=== PATIENT | male | born 1945 | race Caucasian/White ===

== ENCOUNTER 2016-12-21 09:41 | Observation (INO) ==
[2016-12-21] MEDS ORDERED: 0.9 % Sodium Chloride 500 ML IVC ONE (09:48)
--- NOTE | 2016-12-21 09:57 | Emergency Department Note ---
Disposition Clinical Impression: Elevated serum creatinine Chest pain Qualifiers: Chest pain type: unspecified Qualified Code(s): R07.9 - Chest pain, unspecified Disposition: Admitted As Inpatient Condition: Fair Chest Pain HPI - General Chief Complaint: ED Chest Pain Stated Complaint: chest pain Time Seen by Provider: 12/21/16 09:44 Source: EMS Limitations: no limitations Vital Signs Reviewed: Yes Nursing Notes Reviewed: Yes - History of Present Illness HPI Narrative: 71-year-old gentleman presents for evaluation of chest pain. Past medical history includes CABG in 1994 and stent placement in 2014. Patient was walking outside he developed a dull left-sided chest pain was associated with nausea. Patient went inside and sat down and took 3 nitroglycerin which in total resolved his chest pain. This chest pain is similar in quality and nature to previous cardiac related chest pain. Patient does not have cardiology follow- up as his stent was placed in [place]. Patient takes daily aspirin as well as Plavix. Daily smoker. Hypertension. Hypercholesterol. Severity scale (1-10): 0 - Related Data Allergies Allergy/AdvReac Type Severity Reaction Status Date / Time No Known Allergies Allergy Verified 12/21/16 09:43 All systems ED: reviewed and negative except as stated. Constitutional: Denies: fever, chills ENT ED: Denies: congestion Cardiovascular: Reports: chest pain. Denies: dyspnea on exertion, orthopnea Respiratory: Denies: cough, dyspnea Gastrointestinal: Reports: nausea. Denies: abdominal pain Musculoskeletal: Denies: back pain, neck pain Integumentary: Denies: rash Endocrine: Denies: fatigue Chest Pain PMH - Past Medical History Medical history: Reports: coronary artery disease, diabetes, hypertension Psychiatric history: Reports: no psych history - Social History Smoking Status: Never smoker Alcohol use: Reports: none Drug use: Reports: none Physical Exam - General Limitations: no limitations General appearance: alert - Head Head exam: atraumatic, normocephalic - Eye Eye exam: Present: normal appearance - ENT ENT exam: normal exam - Neck Neck exam: Present: normal inspection - Chest Chest inspection: Present: normal inspection, symmetric chest wall rise. Absent : tenderness - Respiratory Respiratory exam: Present: normal lung sounds bilaterally. Absent: respiratory distress, wheezes - Cardiovascular Cardiovascular exam: Present: regular rate, normal rhythm - Abdominal Exam Abdominal exam: Present: soft, Non-Tender - Extremities Exam Extremities exam: Present: normal inspection - Back Exam Back exam: Present: normal inspection. Absent: CVA tenderness (R), CVA tenderness (L) - Neurological Exam Neurological exam: Present: alert, oriented X3 - Psychiatric Psychiatric exam: Present: normal affect, normal mood - Skin Skin exam: Present: warm, dry Course Course Narrative: Patient with significant cardiac history presenting with similar complaints. Patient will have cardiac workup and likely admission for further evaluation. Aspirin given by Squad. Currently asymptomatic after the patient gave himself 3 nitroglycerin. - Reevaluation(s) Reevaluation #1: Discussed results with the patient. We like to admit for further evaluation and management of chest pain. Troponin negative. Creatinine elevated at 1.9. Patient has a history of stage III kidney disease but has no other insight into previous laboratory evaluations. Patient remained chest pain-free at this time. Further investigation of history reveals intermittent angina with worsening symptoms over the last 2 weeks leading to the severe symptoms today that brought him in. - Consultations Consultation #1: Discussed with the hospitalist Dr. HOUSE. Patient accepted for admission. Vital Signs Temperature 98.1 F 12/21/16 09:43 Pulse Rate 73 12/21/16 09:43 Respiratory Rate 18 12/21/16 09:43 Blood Pressure 112/70 12/21/16 09:43 O2 Sat by Pulse Oximetry 100 12/21/16 09:43 Temperature 98.1 F 12/21/16 09:43 Pulse Rate 56 12/21/16 11:22 Respiratory Rate 18 12/21/16 11:22 Blood Pressure 114/63 12/21/16 11:22 O2 Sat by Pulse Oximetry 99 12/21/16 11:22 Oxygen Delivery Oxygen Delivery Room Air Chest Pain - Medical Records Medical records reviewed: Yes I reviewed the patient's medical records. - Lab Data Lab results reviewed: Yes I reviewed the patient's lab results. Result diagrams: 12/21/16 09:59 12/21/16 09:59 Lab Results 12/21/16 12/21/16 12/21/16 Range/Units 09:59 09:59 09:59 WBC 8.9 (4.3-11.1) K/mcL RBC 4.22 (4.19-5.50) M/mcL Hgb 13.6 (12.9-16.9) g/dL Hct 38.5 (37.5-50.1) % MCV 91.2 (83.0-100.0) fL MCH 32.2 (28.0-33.3) pg MCHC 35.3 (31.6-35.5) g/dL RDW 12.5 (11.5-14.5) % Plt Count 180 (140-400) K/mcL MPV 10.1 (9.4-12.4) fL Immature Gran % 0.6 (0-4) % Seg Neutrophils % 81.9 % Lymphocytes % 9.3 % Monocytes % 5.9 % Eosinophils % 2.1 % Basophils % 0.2 % Neutrophils # 7.3 (1.6-8.9) K/mcL Lymphocytes # 0.8 (0.6-4.6) K/mcL Monocytes # 0.5 (0.0-1.3) K/mcL Eosinophils # 0.2 (0.0-0.6) K/mcL Basophils # 0.0 (0.0-0.2) K/mcL Sodium 140 (136-145) mEq/L Potassium 4.5 (3.5-4.5) mEq/L Chloride 107 (98-109) mEq/L Carbon Dioxide 25 (19-29) mEq/L BUN 30 H (8-26) mg/dL Creatinine 1.94 H (0.72-1.25) mg/dL Est GFR ( Amer) 41 L (> 60) Est GFR (Non-Af Amer) 34 L (> 60) BUN/Creatinine Ratio 15 (6-26) Glucose 164 H (70-99) mg/dL Calculated Osmolality 300 (280-300) Calcium 9.4 (8.6-10.8) mg/dL Troponin I (0-0.03) ng/mL B-Natriuretic Peptide 60 (0-100) pg/mL 12/21/16 Range/Units 09:59 WBC (4.3-11.1) K/mcL RBC (4.19-5.50) M/mcL Hgb (12.9-16.9) g/dL Hct (37.5-50.1) % MCV (83.0-100.0) fL MCH (28.0-33.3) pg MCHC (31.6-35.5) g/dL RDW (11.5-14.5) % Plt Count (140-400) K/mcL MPV (9.4-12.4) fL Immature Gran % (0-4) % Seg Neutrophils % % Lymphocytes % % Monocytes % % Eosinophils % % Basophils % % Neutrophils # (1.6-8.9) K/mcL Lymphocytes # (0.6-4.6) K/mcL Monocytes # (0.0-1.3) K/mcL Eosinophils # (0.0-0.6) K/mcL Basophils # (0.0-0.2) K/mcL Sodium (136-145) mEq/L Potassium (3.5-4.5) mEq/L Chloride (98-109) mEq/L Carbon Dioxide (19-29) mEq/L BUN (8-26) mg/dL Creatinine (0.72-1.25) mg/dL Est GFR ( Amer) (> 60) Est GFR (Non-Af Amer) (> 60) BUN/Creatinine Ratio (6-26) Glucose (70-99) mg/dL Calculated Osmolality (280-300) Calcium (8.6-10.8) mg/dL Troponin I 0.01 (0-0.03) ng/mL B-Natriuretic Peptide (0-100) pg/mL - Radiology Data Radiology results reviewed: Yes I reviewed the patient's radiology results. - EKG Data EKG attestation: Yes I reviewed and interpreted this EKG. EKG results narrative: EKG shows sinus rhythm with ventricular rate of 68 bpm. GA interval 141. QRS 93. QTC 39. There is no significant ST elevations or depressions. No significant T-wave changes. No previous EKG for comparison. Heart Score - Score History: Highly Suspicious EKG: Normal Age: Greater than 65 Risk Factors: Equal/Greater than 3 risk factor or history of atherosclerotic disease Troponin: Less than normal limit HEART Score Total: 6 Attestation Statement - Attestation Attestation: I examined this patient and my medical decision-making was reviewed with the MOTOR ASSEMBLY SUPERVISOR/PA/Advanced Practice Nurse/Resident Physician. I agree with the documented findings, disposition and treatment plan as described except to the extent set forth below.
[2016-12-21 10:13] LABS: Basophils % 0.2 %; Eosinophils # 0.2 K/mcL (0.0-0.6); Eosinophils % 2.1 %; Hematocrit 38.5 % (37.5-50.1); Hemoglobin 13.6 g/dL (12.9-16.9); Immature Granulocytes % 0.6 % (0-4); Lymphocytes # 0.8 K/mcL (0.6-4.6); Lymphocytes % 9.3 %; Mean Corpuscular HGB Conc 35.3 g/dL (31.6-35.5); Mean Corpuscular Hemoglobin 32.2 pg (28.0-33.3); Mean Corpuscular Volume 91.2 fL (83.0-100.0); Mean Platelet Volume 10.1 fL (9.4-12.4); Monocytes # 0.5 K/mcL (0.0-1.3); Monocytes % 5.9 %; Neutrophils # 7.3 K/mcL (1.6-8.9); Platelet Count 180 K/mcL (140-400); Red Blood Count 4.22 M/mcL (4.19-5.50); Red Cell Distribution Width 12.5 % (11.5-14.5); Segmented Neutrophils % 81.9 %
[2016-12-21 10:26] LABS: Calcium 9.4 mg/dL (8.6-10.8); Potassium 4.5 mEq/L (3.5-4.5)
--- NOTE | 2016-12-21 13:20 | Internal Med History&Physical ---
Date of Encounter: 12/21/16 Time of Encounter: 13:18 Assessment and Plan (1) Chest pain Current visit: Yes Status: Acute he is chest pain free at this time. first trop is negative, no ischemic changes in EKG. s/p 3 s/l nitroglycerin before arrival will trend tropx3 it was explained to the patient he might need a stress test given high risk even if the troponin and EKG is negative. he says that he does not want stress testing to be done here and would like to have it done at [place] if he really needs one as he had his stentings done over there. HE wants to stay here just overnight and dc tomm if he has no chest pain. Qualifiers: Chest pain type: unspecified Qualified Code(s): R07.9 - Chest pain, unspecified (2) CKD (chronic kidney disease) Current visit: Yes Status: Acute h/o CKD, unknown baseline. will continue to monitor avoid nephrotoxic agents. Qualifiers: Chronic kidney disease stage: stage 3 (moderate) Qualified Code(s): N18.3 - Chronic kidney disease, stage 3 (moderate) (3) CAD (coronary artery disease) Current visit: Yes Status: Acute conitnue asa , BB and plavix with statin. Qualifiers: Coronary Disease-Associated Artery/Lesion type: [place] artery [place] vs. transplanted heart: [place] heart Associated angina: with stable angina Qualified Code(s): I25.118 - Atherosclerotic heart disease of [place] coronary artery with other forms of angina pectoris Internal Medicine - H&P: HPI Chief complaint: chest pain Admitted From: Home Plans for Post Hospital Care: Home History of present illness: Mr. Sandoval is a 71 year old male with past medical history of hypertension, diabetes, hyperlipidemia presents for evaluation of chest pain. Past medical history includes CAD and stent placement, he says he has total of 11 stents so far, last one was ~6-8months ago in [place]. Patient was walking outside he developed a dull left-sided chest pain was associated with nausea. Patient went inside and sat down and took 3 nitroglycerin which in total resolved his chest pain. This chest pain is similar in quality and nature to previous cardiac related chest pain. Patient does not have cardiology follow-up as his stent was placed in [place], he says its a long distance and he had not had any problem after the last stent so he did not go for his appt. Patient takes daily aspirin as well as Plavix. Daily smoker. Past Med Surg Social Fam HX - Past Medical History Medical history: coronary artery disease, diabetes, hypertension Psychiatric history: no psych history - Social History Smoking Status: Never smoker Smokeless Tobacco Status: No Alcohol use: none Drug use: none Internal Medicine - H&P: Meds Amlodipine Besylate 10 mg PO DAILY 12/21/16 [History] Aspirin [Lo-Dose Aspirin EC] 81 mg PO DAILY 12/21/16 [History] Atorvastatin [Lipitor] 40 mg PO HS 12/21/16 [History] Clopidogrel [Plavix] 75 mg PO DAILY 12/21/16 [History] GlipiZIDE [Glucotrol] 5 mg PO BIDWM 12/21/16 [History] Lisinopril [Zestril] 2.5 mg PO DAILY 12/21/16 [History] Metoprolol [Lopressor] 12.5 mg PO BID 12/21/16 [History] Nitroglycerin [Nitrolingual] 1 spray TL AD PRN 12/21/16 [History] Tamsulosin [Flomax] 0.4 mg PO DAILY 12/21/16 [History] Allergies No Known Allergies Allergy (Verified 12/21/16 09:43) All Systems PM: A 10-system review of systems was performed and is negative for pertinent findings except as documented above in the HPI. - Constitutional Constitutional: as per HPI - EENT Eyes: as per HPI Ears: as per HPI Nose, mouth and throat: as per HPI - Breasts Breasts: as per HPI - Cardiovascular Cardiovascular ROS IM: chest pain - Respiratory Respiratory: as per HPI - Gastrointestinal Gastrointestinal: as per HPI - Constitutional Vitals: Temp Pulse Resp BP Pulse Ox 98.1 F 56 18 115/55 99 12/21/16 09:43 12/21/16 11:22 12/21/16 11:44 12/21/16 11:44 12/21/16 11:22 General appearance: Present: A&O X 3, no acute distress Exam: neck- supple chest- b/l clear, no added sounds CVs-s1 and s2, no m/r/g abd-soft, non tender, bs are present ext- no edema neuro- no focal defecits Internal Med - H&P Results - Labs CBC & Chem 7: 05/08/17 09:59 12/21/16 09:59
[2016-12-21] MEDS ORDERED: *HR* Morphine 2 MG/ML SYRINGE IVP PRN (13:26)
[2016-12-21] MEDS ORDERED: *HR* OxyCODONE Immed Rel 5 MG TABLET PO PRN (13:26)
[2016-12-21] MEDS ORDERED: Naloxone 0.4 MG/ML INJ IVP PRN (13:26)
[2016-12-21] MEDS ORDERED: *HR* Dextrose 50 % in Water (Syg) 50 ML SYRINGE IVP PRN (13:29)
[2016-12-21] MEDS ORDERED: D5% in Water 1,000 ML IVC PRN (13:29)
[2016-12-21] MEDS ORDERED: Dextrose Gel 15 GM PO PRN ×2 (13:29)
[2016-12-21] MEDS: Insulin LISPRO 300 UNITS/3 ML VIAL SQ SCH (16:30)
--- NOTE | 2016-12-21 17:35 | Electrocardiograph Report ---
[address] [address] Test Date: 2016-12-21 Pat Name: Jesus Sandoval Department: 105 Room: 3A24 Gender: M Ice Skating Instructor: : 1945 Requested By: Brannon Brewer Order Number: [id number] Reading MD: Drake Bach Measurements Intervals [place] Rate: 68 P: 61 TN: 141 QRS: 61 QRSD: 93 T: 67 QT: 371 QTc: 389 Interpretive Statements SINUS RHYTHM Electronically Signed On 12-21-2016 17:34:01 EDT by Drake Bach
[2016-12-21] MEDS ORDERED: Nitroglycerin 0.4 MG TAB.SUBL SL PRN (19:34)
[2016-12-21] MEDS ORDERED: Insulin LISPRO 300 UNITS/3 ML VIAL SQ SCH (21:00)
[2016-12-22 01:27] LABS: Basophils % 0.4 %; Eosinophils # 0.3 K/mcL (0.0-0.6); Eosinophils % 3.9 %; Hematocrit 35.2 % (37.5-50.1); Hemoglobin 12.1 g/dL (12.9-16.9); Immature Granulocytes % 0.3 % (0-4); Lymphocytes # 1.9 K/mcL (0.6-4.6); Lymphocytes % 27.6 %; Mean Corpuscular HGB Conc 34.4 g/dL (31.6-35.5); Mean Corpuscular Hemoglobin 31.3 pg (28.0-33.3); Mean Corpuscular Volume 91.2 fL (83.0-100.0); Mean Platelet Volume 9.8 fL (9.4-12.4); Monocytes # 0.7 K/mcL (0.0-1.3); Monocytes % 10.1 %; Neutrophils # 3.9 K/mcL (1.6-8.9); Platelet Count 171 K/mcL (140-400); Red Blood Count 3.86 M/mcL (4.19-5.50); Red Cell Distribution Width 12.5 % (11.5-14.5); Segmented Neutrophils % 57.7 %
[2016-12-22 01:46] LABS: Calcium 8.7 mg/dL (8.6-10.8); Chol/HDL Ratio 3.1 (0-4.9); Magnesium 2.1 mg/dL (1.6-2.6); Potassium 3.7 mEq/L (3.5-4.5)
[2016-12-22] MEDS: Insulin LISPRO 300 UNITS/3 ML VIAL SQ SCH ×2 (07:57→12:08)
[2016-12-22] MEDS ORDERED: Aspirin Enteric Coated 81 MG Tablet PO SCH (09:00)
[2016-12-22] MEDS ORDERED: amLODIPine 5 MG TABLET PO SCH (09:00)
--- NOTE | 2016-12-22 10:57 | Discharge Summary ---
Date of Encounter: 12/22/16 Time of Encounter: 10:55 - Discharge Diagnosis (1) CAD (coronary artery disease) Priority: Primary Status: Acute Comments: cp with stable angina/progressive angina history of multiple stents Qualifiers: Coronary Disease-Associated Artery/Lesion type: [place] artery [place] vs. transplanted heart: [place] heart Associated angina: with stable angina Qualified Code(s): I25.118 - Atherosclerotic heart disease of [place] coronary artery with other forms of angina pectoris (2) HTN (hypertension) Priority: Secondary Status: Acute Qualifiers: Hypertension type: essential hypertension Qualified Code(s): I10 - Essential (primary) hypertension (3) Diabetes Priority: Secondary Status: Acute Qualifiers: Diabetes mellitus type: type 2 Diabetes mellitus complication status: without complication Diabetes mellitus retirement insulin use: without exterminator helper use Qualified Code(s): E11.9 - Type 2 diabetes mellitus without complications (4) HLD (hyperlipidemia) Priority: Secondary Status: Acute Qualifiers: Hyperlipidemia type: pure hypercholesterolemia Qualified Code(s): E78.00 - Pure hypercholesterolemia, unspecified; E78.0 - Pure hypercholesterolemia (5) CKD (chronic kidney disease) Priority: Secondary Status: Acute Qualifiers: Chronic kidney disease stage: stage 3 (moderate) Qualified Code(s): N18.3 - Chronic kidney disease, stage 3 (moderate) - Discharge Medications Home Medications: Amlodipine Besylate 10 mg PO DAILY 12/21/16 [History] Aspirin [Lo-Dose Aspirin EC] 81 mg PO DAILY 12/21/16 [History] Atorvastatin [Lipitor] 40 mg PO HS 12/21/16 [History] Clopidogrel [Plavix] 75 mg PO DAILY 12/21/16 [History] GlipiZIDE [Glucotrol] 5 mg PO BIDWM 12/21/16 [History] Lisinopril [Zestril] 2.5 mg PO DAILY 12/21/16 [History] Metoprolol [Lopressor] 12.5 mg PO BID 12/21/16 [History] Nitroglycerin [Nitrolingual] 1 spray TL AD PRN 12/21/16 [History] Tamsulosin [Flomax] 0.4 mg PO DAILY 12/21/16 [History] Allergies/Adverse Reactions: Allergies No Known Allergies Allergy (Verified 12/21/16 09:43) Date of admission: 12/21/16 11:41 Primary care physician: Milton Murray, - Patient Status Disposition: Transfer Critical Access Hosp Condition: Fair Overall status at discharge: patient is progressing back to baseline - Discharge Instructions Follow Up With: Milton Murray, [Primary Care Provider] - 01/14/17 7:45 am Additional Instructions: transfer to [facility] - Diet and Activity Diet: low fat, low cholesterol Hospital course: Mr. Sandoval is a 71 year old male with past medical history of hypertension, diabetes not insulin dep, hyperlipidemia presented for evaluation of chest pain. Past medical history includes CAD and stent placement, he says he has total of 11 stents so far, last one was ~6-8months ago in [place]. Patient was walking outside when he developed a dull left-sided chest pain was associated with nausea. Patient went inside and sat down and took 3 nitroglycerin which in total resolved his chest pain. This chest pain is similar in quality and nature to previous cardiac related chest pain. . Patient takes daily aspirin as well as Plavix. Daily smoker. EKG without ischemic changes, troponins were normal. Says he can not walk more than 10 yards without having chest pressure/discomfort , requested to be transferred to the [facility] as he sees Dr De La Rosa there ( could not spell his last name) . Contacted Dr Fang from the [facility] who accepted the patient under his care. Time spent discussing smoking cessation with patient: 3 to 10 minutes - Time Spent with Patient Total time spent providing and/or coordinating discharge services: Greater than 30 minutes (40 min) - Constitutional Vitals: Temp Pulse Resp BP Pulse Ox 97.9 F 75 18 144/69 97 12/22/16 07:50 12/22/16 07:50 12/22/16 07:50 12/22/16 07:50 12/22/16 07:50 General appearance: Present: A&O X 3, no acute distress - Head Head exam: Present: atraumatic, normocephalic - Eye Eye exam: Present: PERRL, conjuntiva pink, sclera anicteric Pupils: Present: PERRL - Neck Neck exam general surgery: Present: supple, trachea midline. Absent: lymphadenopathy - Respiratory Respiratory exam: Present: CTAB. Absent: accessory muscle use, rales, rhonchi, wheezes - Cardiovascular Cardiovascular exam: Present: RRR, +S1, +S2. Absent: diastolic murmur, gallop, rubs, systolic murmur - GI/Abdominal GI/Abdominal exam: Present: normal bowel sounds, soft, no peritoneal signs. Absent: distended, tenderness - Extremities Exam Extremities exam: Present: warm, radial pulses palpable and symetrical. Absent : calf tenderness, cyanotic, pedal edema - Neurological Exam Neurological exam: Present: CN II-XII intact, oriented X3, no focal deficits. Absent: pronater drift, facial droop, speech deficit - Skin Skin exam: Present: dry, intact
[2016-12-22 17:33] VITALS: BP 120/55
== END 2016-12-22 17:34 | disposition critical access hospital (66) ==
LOC: 3ANU 09:41 → EMEROO 09:41 → SUATTDRO 11:41 → 3ANU 11:56
PROVIDERS: ADMIT Internal Medicine Endocrinology, Diabetes & Metabolism; ATTEND Internal Medicine

== ENCOUNTER 2017-05-24 08:33 | Observation (INO) ==
[2017-05-24] MEDS ORDERED: 0.9 % Sodium Chloride 1,000 ML IVC ONE (08:53)
[2017-05-24 09:18] LABS: Hematocrit 39.6 % (37.5-50.1); Hemoglobin 13.8 g/dL (12.9-16.9); Immature Platelets 2.8 % (1.1-6.1); Mean Corpuscular HGB Conc 34.8 g/dL (31.6-35.5); Mean Corpuscular Hemoglobin 30.3 pg (28.0-33.3); Mean Corpuscular Volume 86.8 fL (83.0-100.0); Mean Platelet Volume 9.4 fL (9.4-12.4); Red Blood Count 4.56 M/mcL (4.19-5.50); Red Cell Distribution Width 12.5 % (11.5-14.5)
[2017-05-24 09:23] LABS: INR 1.1; Prothrombin Time 11.9 Seconds (9.4-12.1)
[2017-05-24 09:25] LABS: Activated Partial Thrombo Time 26.3 Seconds (26.0-36.0)
[2017-05-24 09:33] LABS: Alanine Aminotransferase 19 Units/L (0-55); Albumin 3.4 g/dL (3.5-5.0); Albumin/Globulin Ratio 1.1 (1.1-2.2); Alkaline Phosphatase 79 Units/L (38-126); Aspartate Amino Transferase 17 Units/L (5-34); Bilirubin,Direct 0.3 mg/dL (0.0-0.5); Bilirubin,Indirect 0.5 mg/dL (0.0-1.2); Bilirubin,Total 0.8 mg/dL (0.2-1.2); Creatine Kinase 65 Units/L (30-200); Globulin 3.2 g/dL (2.4-3.5); Total Protein 6.6 g/dL (6.0-8.3)
[2017-05-24 10:03] LABS: Ethanol < 10 mg/dL (0-10)
[2017-05-24 10:06] LABS: Bilirubin,Urine Negative (Negative); Blood,Urine Negative (Negative); Clarity,Urine Clear (Clear); Color,Urine Yellow (Yellow); Glucose,Urine (UA) 250 mg/dL (Normal); Ketones,Urine Negative (Negative); Leukocyte Esterase,Urine Negative (Negative); Nitrite,Urine Negative (Negative); PH,Urine 6.5 pH Units (5.0-8.0); Protein,Urine 100 mg/dL (Neg-Trace); Specific Gravity,Urine 1.017 (1.010-1.025); Urobilinogen,Urine Normal (Normal)
[2017-05-24 10:08] LABS: Bacteria,Urine None Seen per hpf (None-Few); Hyaline Casts,Urine None Seen per lpf (None-Few); RBC,Urine 0-3 per hpf (0-3); Squamous Epithelial Cell,Urine Few per lpf (None-Few); WBC,Urine 0-3 per hpf (0-3)
[2017-05-24 10:40] LABS: Amphetamine Screen,Urine Negative ng/mL (Cutoff=1000); Barbiturate Screen,Urine Negative ng/mL (Cutoff=200); Benzodiazepines Screen,Urine Negative ng/mL (Cutoff=200); Cannabinoid Screen,Urine Negative ng/mL (Cutoff = 50); Cocaine Screen,Urine Negative ng/mL (Cutoff= 300); Opiate Screen,Urine Negative ng/mL (Cutoff=300); Phencyclidine Screen,Urine Negative ng/mL (Cutoff=25)
[2017-05-24] MEDS ORDERED: Naloxone 0.4 MG/ML INJ IVP PRN (11:54)
[2017-05-24] MEDS ORDERED: Acetaminophen 325 MG TABLET PO PRN (11:54)
--- NOTE | 2017-05-24 11:59 | Emergency Department Note ---
Disposition Clinical Impression: Dysphasia TIA (transient ischemic attack) Qualifiers: Transient cerebral ischemia type: unspecified Qualified Code(s): G45.9 - Transient cerebral ischemic attack, unspecified Disposition: Admitted As Inpatient Condition: Good Referrals: Milton Murray DO [Primary Care Provider] - Time of Disposition: 12:31 General Adult HPI - General Chief complaint: ED Altered Mental Status Stated complaint: confusion Time Seen by Provider: 05/24/17 08:53 Source: patient Mode of arrival: EMS Limitations: no limitations Nursing Notes Reviewed: Yes Vital Signs Reviewed: Yes - History of Present Illness HPI Narrative: Patient presents emergency room the care of the family for evaluation of confusion and difficulty with speech this morning. Symptom onset late last night and has been stable since last night at that time. He has been managed up at outside facility for cardiac related issues but presented to our emergency room for evaluation of his difficulty with speech. Denies any chest pain shortness of breath headache vision changes nausea vomiting or diarrhea. Denies any fevers or chills recent trauma or injuries. Denies any new medications or changes in his medications at this time Onset (ago): hour(s) Radiation: non-radiation Pain Severity: mild Pain Scale: 1 Consistency: constant Improves with: nothing Worsens with: nothing Associated symptoms: Reports: denies other symptoms Treatments Prior to Arrival: none - Related Data Home Medications Medication Instructions Recorded Confirmed Amlodipine Besylate 10 mg PO DAILY 12/21/16 05/24/17 Aspirin [Lo-Dose Aspirin EC] 81 mg PO DAILY 12/21/16 05/24/17 Atorvastatin [Lipitor] 40 mg PO HS 12/21/16 05/24/17 Clopidogrel [Plavix] 75 mg PO DAILY 12/21/16 05/24/17 Metoprolol [Lopressor] 25 mg PO DAILY 12/21/16 05/24/17 Tamsulosin [Flomax] 0.4 mg PO DAILY 12/21/16 05/24/17 glipiZIDE [Glucotrol] 5 mg PO BIDWM 12/21/16 05/24/17 Allergies Allergy/AdvReac Type Severity Reaction Status Date / Time No Known Allergies Allergy Verified 12/21/16 09:43 All systems ED: reviewed and negative except as stated. Review of Systems: As Per HPI Constitutional: Denies: fever, chills Eyes: Denies: eye pain, eye discharge Cardiovascular: Denies: chest pain, palpitations, dyspnea on exertion Respiratory: Denies: cough, dyspnea, wheezes Gastrointestinal: Denies: abdominal pain, nausea, vomiting Genitourinary: Denies: urgency, dysuria, frequency Musculoskeletal: Denies: back pain, neck pain Neurological: Reports: confusion. Denies: headache, weakness, numbness Psychiatric: Denies: anxiety Past Medical History - Past Medical History Attestation: Yes The following information was validated with the patient. Source: patient Medical history: Reports: coronary artery disease, diabetes, hypertension Surgical history: Reports: coronary bypass (CABG) Psychiatric history: Reports: no psych history - Social History Smoking Status: Never smoker Smokeless Tobacco Status: No Alcohol use: Reports: none Drug use: Reports: none Physical Exam - General Limitations: no limitations General appearance: alert, in no apparent distress - Head Head exam: atraumatic, normocephalic, normal inspection - ENT ENT exam: normal exam, normal oropharynx, mucous membranes moist - Neck Neck exam: Present: normal inspection, full ROM, trachea midline - Chest Chest inspection: Present: normal inspection, symmetric chest wall rise - Respiratory Respiratory exam: Present: normal lung sounds bilaterally - Cardiovascular Cardiovascular exam: Present: regular rate, normal rhythm, normal heart sounds - Abdominal Exam Abdominal exam: Present: soft, Non-Tender. Absent: tenderness, distention, guarding, rebound, rigidity - Extremities Exam Extremities exam: Present: normal inspection, full ROM, normal capillary refill. Absent: tenderness - Back Exam Back exam: Present: normal inspection, full ROM. Absent: tenderness - Neurological Exam Neurological exam: Present: alert, oriented X3, normal gait - Skin Skin exam: Present: warm, dry, intact, normal color Course Course Narrative: Patient seen and examined the time of arrival. See history of present illness. 72-year-old male presents with almost 18 hours worth of dysphasia secondary to difficulty with getting words out. He also has slight slurring of speech. No facial asymmetry noted no signs of ataxia or asymmetric muscle use based on symptom history and presentation according to the family. Patient is alert and oriented he speaks in full sentences but does have what appears to be some mild dysphasia and dysarthria. There is no facial asymmetry. His neurologic evaluation is otherwise unremarkable. His appropriate cerebellar function shows no acute signs of ataxia or dizziness. Head is atraumatic pupils are equal and reactive to light and ocular muscles are intact. Lungs are clear heart is regular abdomen is soft nontender nondistended. Patient has no other complaints or issues on presentation except for the neurologic symptoms including difficulty with getting out words. Patient received imaging of the head labs including CBC chemistry urinalysis and any other A abnormality evaluation. EKG completed at this time. Disposition pending workup and treatment course. Patient advised that we may recommend admission to this facility in a comfortable despite this time. No other concerns or issues noted from the family this point - Reevaluation(s) Reevaluation #1: CT imaging of the patient's head is otherwise unremarkable at this time. EKG shows sinus rhythm and no acute abnormalities. This review from an EKG in December of this year. No signs of ST segment elevation or myocardial infarction. Labs otherwise unremarkable at this time. I discussed the findings with the family as well as the patient. Recommended admission for TIA evaluation. Patient's symptoms are actually better this time with no acute findings at this point he is able to speak in full sentences. Patient will be discussed with the hospitalist for admission Time: 10:30 Reevaluation #2: Patient discussed with hospitalist dr. mulligan. The presentation symptoms and medical history. The patient for TIA evaluation. No other recommendations from them at this time. Patient is otherwise stable in emergency room and will be observed until the admission process is completed Time: 12:29 Vital Signs Temperature 97.8 F 05/24/17 08:35 Pulse Rate 63 05/24/17 08:35 Respiratory Rate 16 05/24/17 08:35 Blood Pressure 140/64 05/24/17 08:35 O2 Sat by Pulse Oximetry 97 05/24/17 08:35 Temperature 97.8 F 05/24/17 08:35 Pulse Rate 60 05/24/17 11:27 Respiratory Rate 16 05/24/17 11:27 Blood Pressure 135/67 05/24/17 11:27 O2 Sat by Pulse Oximetry 99 05/24/17 11:27 Oxygen Delivery Oxygen Delivery Room Air Medical Decision Making - MDM Narrative Medical decision making narrative: TIA, dysphagia, dysarthria - Medical Records Medical records reviewed: Yes I reviewed the patient's medical records. - Lab Data Lab results reviewed: Yes I reviewed the patient's lab results. Result diagrams: 05/24/17 09:07 05/24/17 09:07 Lab Results 05/24/17 05/24/17 05/24/17 Range/Units 08:55 09:07 09:07 WBC 6.6 (4.3-11.1) K/mcL RBC 4.56 (4.19-5.50) M/mcL Hgb 13.8 (12.9-16.9) g/dL Hct 39.6 (37.5-50.1) % MCV 86.8 (83.0-100.0) fL MCH 30.3 (28.0-33.3) pg MCHC 34.8 (31.6-35.5) g/dL RDW 12.5 (11.5-14.5) % Plt Count 185 (140-400) K/mcL MPV 9.4 (9.4-12.4) fL Immature Plt Fraction 2.8 (1.1-6.1) % PT 11.9 (9.4-12.1) Seconds INR 1.1 APTT 26.3 (26.0-36.0) Seconds POC Glucose 207 H (58-89) Total Bilirubin (0.2-1.2) mg/dL Direct Bilirubin (0.0-0.5) mg/dL Indirect Bilirubin (0.0-1.2) mg/dL AST (5-34) Units/L ALT (0-55) Units/L Alkaline Phosphatase (38-126) Units/L Ammonia (18-72) mcmol/L Creatine Kinase (30-200) Units/L Troponin I (0-0.03) ng/mL Serum Total Protein (6.0-8.3) g/dL Albumin (3.5-5.0) g/dL Globulin (2.4-3.5) g/dL Albumin/Globulin Ratio (1.1-2.2) Urine Color (Yellow) Urine Clarity (Clear) Urine pH (5.0-8.0) pH Units Ur Specific [place] (1.010-1.025) Urine Protein (Neg-Trace) mg/dL Urine Glucose (UA) (Normal) mg/dL Urine Ketones (Negative) mg/dL Urine Blood (Negative) Urine Nitrite (Negative) Urine Bilirubin (Negative) Urine Urobilinogen (Normal) mg/dL Ur Leukocyte Esterase (Negative) Urine Microscopic RBC (0-3) per hpf Urine Microscopic WBC (0-3) per hpf Ur Squamous Epith Cells (None-Few) per lpf Urine Bacteria (None-Few) per hpf Hyaline Casts (None-Few) per lpf Ur Culture Indicated? (NO) Urine Opiates Screen (Cgiuot=191) ng/mL Ur Barbiturates Screen (Jjcnmx=807) ng/mL Ur Phencyclidine Scrn (Cutoff=25) ng/mL Ur Amphetamines Screen (Qkywqr=3327) ng/mL U Benzodiazepines Scrn (Nuphfd=166) ng/mL Urine Cocaine Screen (Cutoff= 300) ng/mL U Marijuana (THC) Screen (Cutoff = 50) ng/mL Ethyl Alcohol (0-10) mg/dL Blood Type Antibody Screen 05/24/17 05/24/17 05/24/17 Range/Units 09:07 09:07 09:07 WBC (4.3-11.1) K/mcL RBC (4.19-5.50) M/mcL Hgb (12.9-16.9) g/dL Hct (37.5-50.1) % MCV (83.0-100.0) fL MCH (28.0-33.3) pg MCHC (31.6-35.5) g/dL RDW (11.5-14.5) % Plt Count (140-400) K/mcL MPV (9.4-12.4) fL Immature Plt Fraction (1.1-6.1) % PT (9.4-12.1) Seconds INR APTT (26.0-36.0) Seconds POC Glucose (58-89) Total Bilirubin 0.8 (0.2-1.2) mg/dL Direct Bilirubin 0.3 (0.0-0.5) mg/dL Indirect Bilirubin 0.5 (0.0-1.2) mg/dL AST 17 (5-34) Units/L ALT 19 (0-55) Units/L Alkaline Phosphatase 79 (38-126) Units/L Ammonia 20 (18-72) mcmol/L Creatine Kinase 65 (30-200) Units/L Troponin I (0-0.03) ng/mL Serum Total Protein 6.6 (6.0-8.3) g/dL Albumin 3.4 L (3.5-5.0) g/dL Globulin 3.2 (2.4-3.5) g/dL Albumin/Globulin Ratio 1.1 (1.1-2.2) Urine Color (Yellow) Urine Clarity (Clear) Urine pH (5.0-8.0) pH Units Ur Specific [place] (1.010-1.025) Urine Protein (Neg-Trace) mg/dL Urine Glucose (UA) (Normal) mg/dL Urine Ketones (Negative) mg/dL Urine Blood (Negative) Urine Nitrite (Negative) Urine Bilirubin (Negative) Urine Urobilinogen (Normal) mg/dL Ur Leukocyte Esterase (Negative) Urine Microscopic RBC (0-3) per hpf Urine Microscopic WBC (0-3) per hpf Ur Squamous Epith Cells (None-Few) per lpf Urine Bacteria (None-Few) per hpf Hyaline Casts (None-Few) per lpf Ur Culture Indicated? (NO) Urine Opiates Screen (Caavkp=639) ng/mL Ur Barbiturates Screen (Jnrmdm=657) ng/mL Ur Phencyclidine Scrn (Cutoff=25) ng/mL Ur Amphetamines Screen (Giuxwm=1329) ng/mL U Benzodiazepines Scrn (Axmboi=429) ng/mL Urine Cocaine Screen (Cutoff= 300) ng/mL U Marijuana (THC) Screen (Cutoff = 50) ng/mL Ethyl Alcohol < 10 (0-10) mg/dL Blood Type O POSITIVE Antibody Screen NEGATIVE 05/24/17 05/24/17 05/24/17 Range/Units 09:07 09:59 09:59 WBC (4.3-11.1) K/mcL RBC (4.19-5.50) M/mcL Hgb (12.9-16.9) g/dL Hct (37.5-50.1) % MCV (83.0-100.0) fL MCH (28.0-33.3) pg MCHC (31.6-35.5) g/dL RDW (11.5-14.5) % Plt Count (140-400) K/mcL MPV (9.4-12.4) fL Immature Plt Fraction (1.1-6.1) % PT (9.4-12.1) Seconds INR APTT (26.0-36.0) Seconds POC Glucose (58-89) Total Bilirubin (0.2-1.2) mg/dL Direct Bilirubin (0.0-0.5) mg/dL Indirect Bilirubin (0.0-1.2) mg/dL AST (5-34) Units/L ALT (0-55) Units/L Alkaline Phosphatase (38-126) Units/L Ammonia (18-72) mcmol/L Creatine Kinase (30-200) Units/L Troponin I 0.01 (0-0.03) ng/mL Serum Total Protein (6.0-8.3) g/dL Albumin (3.5-5.0) g/dL Globulin (2.4-3.5) g/dL Albumin/Globulin Ratio (1.1-2.2) Urine Color Yellow (Yellow) Urine Clarity Clear (Clear) Urine pH 6.5 (5.0-8.0) pH Units Ur Specific [place] 1.017 (1.010-1.025) Urine Protein 100 H (Neg-Trace) mg/dL Urine Glucose (UA) 250 H (Normal) mg/dL Urine Ketones Negative (Negative) mg/dL Urine Blood Negative (Negative) Urine Nitrite Negative (Negative) Urine Bilirubin Negative (Negative) Urine Urobilinogen Normal (Normal) mg/dL Ur Leukocyte Esterase Negative (Negative) Urine Microscopic RBC 0-3 (0-3) per hpf Urine Microscopic WBC 0-3 (0-3) per hpf Ur Squamous Epith Cells Few (None-Few) per lpf Urine Bacteria None Seen (None-Few) per hpf Hyaline Casts None Seen (None-Few) per lpf Ur Culture Indicated? NO (NO) Urine Opiates Screen Negative (Valcuz=631) ng/mL Ur Barbiturates Screen Negative (Lhyxxb=914) ng/mL Ur Phencyclidine Scrn Negative (Cutoff=25) ng/mL Ur Amphetamines Screen Negative (Mevejv=3126) ng/mL U Benzodiazepines Scrn Negative (Ebtngq=660) ng/mL Urine Cocaine Screen Negative (Cutoff= 300) ng/mL U Marijuana (THC) Screen Negative (Cutoff = 50) ng/mL Ethyl Alcohol (0-10) mg/dL Blood Type Antibody Screen - Radiology Data Radiology results reviewed: Yes I reviewed the patient's radiology results. CT imaging of the head is otherwise unremarkable chest x-ray stable - EKG Data EKG #1 EKG attestation: Yes I reviewed and interpreted this EKG. EKG shows normal: sinus rhythm, axis, intervals, QRS complexes, ST-T waves Rate: normal [place]/QRS: normal When compared to previous EKG there are: no significant changes Interpretation: no acute changes, unchanged when compared to prior tracing (date ) (12/30) NIH Stroke Scale - Level of Consciousness LOC: Alert - LOC Questions LOC Questions: Answers both correctly - LOC Commands LOC Commands: Performs both correctly - Best Gaze Best Gaze: Normal - Visual Visual: No visual loss - Facial Palsy Facial Palsy: Normal - Motor Arms Motor Arm-Left: No drift for 10 seconds Motor Arm-Right: No drift for 10 seconds - Motor Legs Motor Leg-Left: No drift for 5 seconds Motor Leg-Right: No drift for 5 seconds - Limb Ataxia Limb Ataxia: Absent of affected limb too weak to perform exam - Sensory Sensory: Normal - Best Language Best Language: Mild to moderate aphasia. Examiner can identify picture from response - Dysarthria Dysarthria: Mild, slurs some words - Extinction and Inattention Extinction and Inattention: Normal - NIHSS Total Score NIHSS Total Score: 2
[2017-05-24] MEDS ORDERED: *HR* Dextrose 50 % in Water (Syg) 50 ML SYRINGE IVP PRN (12:01)
[2017-05-24] MEDS ORDERED: Dextrose Gel 15 GM PO PRN ×2 (12:01)
[2017-05-24] MEDS ORDERED: D5% in Water 1,000 ML IVC PRN (12:01)
--- NOTE | 2017-05-24 12:22 | Internal Med History&Physical ---
<Radha Osman M - Last Filed: 05/24/17 12:57> Date of Encounter: 05/24/17 Time of Encounter: 12:17 Assessment and Plan (1) TIA (transient ischemic attack) Current visit: Yes Status: Acute Patient has had multiple episode of slurred speech over the last few days. This morning it was accompanied by confusion and lasted for at least 1 hour. Symptoms have now resolved. CT head was negative for acute intracranial abnormality. EKG showed NSR. Patient already on aspiring, plavix and statin. Continue home doses. continuous diagnostic cardiac sonographer echocardiogram MRI head/brain w/o contrast carotid dopplers Qualifiers: Transient cerebral ischemia type: unspecified Qualified Code(s): G45.9 - Transient cerebral ischemic attack, unspecified (2) CAD (coronary artery disease) Current visit: Yes Status: Acute Patient with CAD s/p CABG and multiple stent placements. He follows with cardiology at [facility]. He is not experiencing any chest pain and troponin was negative at 0.01 Continue home doses of aspirin, statin, plavix. Qualifiers: Coronary Disease-Associated Artery/Lesion type: [place]ik artery [place] vs. transplanted heart: knik heart Associated angina: with stable angina Qualified Code(s): I25.118 - Atherosclerotic heart disease of knik coronary artery with other forms of angina pectoris (3) Diabetes Current visit: Yes Status: Acute Hold metformin. Diabetic diet. check blood sugars ACHS. sliding scale correction dose ACHS hypoglycemic protocol. Qualifiers: Diabetes mellitus type: type 2 Diabetes mellitus complication status: without complication Diabetes mellitus ferry terminal supervisor insulin use: without ferry terminal supervisor use Qualified Code(s): E11.9 - Type 2 diabetes mellitus without complications (4) DVT prophylaxis Current visit: Yes Status: Acute anti-embolic stockings heparin SQ TID Internal Medicine - H&P: HPI Chief complaint: slurred speech Admitted From: Emergency Dept Plans for Post Hospital Care: Home History of present illness: Mr. Sandoval is a 72 year old male with HTN, HLD, CAD s/p CABG and stents, CKD presented to the emergency department today with reports of confusion and slurred speech. Patient reports he had brief episodes of slurred speech on and off for the last several days, and had a longer episode last evening. This morning, the slurred speech was accompanied by some confusion and lasted at least 1 hour. He also reports occasional lightheadedness. He denies chest pain , palpitations, increased shortness of breath, numbness or tingling. Evaluation in the ED included a head CT which showed no acute intracranial abnormality, chest xray showed stable, clear chest. EKG showed NSR. On exam, patient was alert and oriented, in no distress. He did not have any slurred speech, facial droop or focal neurological deficit. Heart had regular rate and rhythm. Lungs clear bilaterally. No peripheral edema. peripheral pulses intact. Past Med Surg Social Fam HX - Past Medical History Medical history: coronary artery disease, diabetes, hyperlipidemia, hypertension , renal disease Psychiatric history: no psych history - Past Surgical History Surgical History: angioplasty/stent, coronary bypass (CABG) - Social History Smoking Status: Former smoker Smokeless Tobacco Status: No Alcohol use: none Drug use: none - Family History Mother Living Status: Hx Family Cardiac Disorders: Yes Hx Family Endocrine Disorder: Yes (diabetes) Father Living Status: Hx Family Cardiac Disorders: Yes Brother Living Status: Still Living Hx Family Cardiac Disorders: Yes (CVA) Internal Medicine - H&P: Meds Amlodipine Besylate 10 mg PO DAILY 12/21/16 [History] Aspirin [Lo-Dose Aspirin EC] 81 mg PO DAILY 12/21/16 [History] Atorvastatin [Lipitor] 40 mg PO HS 12/21/16 [History] Clopidogrel [Plavix] 75 mg PO DAILY 12/21/16 [History] Metoprolol [Lopressor] 25 mg PO DAILY 12/21/16 [History] Tamsulosin [Flomax] 0.4 mg PO DAILY 12/21/16 [History] glipiZIDE [Glucotrol] 5 mg PO BIDWM 12/21/16 [History] 3 Allergy/AdvReac Type Severity Reaction Status Date / Time No Known Allergies Allergy Verified 12/21/16 09:43 All Systems PM: A 10-system review of systems was performed and is negative for pertinent findings except as documented above in the HPI. - Constitutional Constitutional: no chills, no fever(s), no night sweats - EENT Eyes: no change in vision, no discharge, no pain, no photophobia Ears: no ear discharge, no ear pain, no tinnitus Nose, mouth and throat: no dysphagia, no nasal discharge, no neck pain, no sore throat - Cardiovascular Cardiovascular ROS IM: no chest pain, no diaphoresis, no dyspnea, no lightheadedness, no palpitations, no syncope - Respiratory Respiratory: no cough, no dyspnea, no wheezing, no excessive phlegm production - Gastrointestinal Gastrointestinal: no abdominal pain, no diarrhea, no hematemesis, no hematochezia, no melena, no nausea, no vomiting - Musculoskeletal Musculoskeletal ROS IM: no numbness, no tingling - Integumentary Integumentary IM: no rash, no unusual bruising - Neurological Neurological ROS: abnormal speech, confusion, no convulsions, no focal weakness , no numbness, no tingling, no tremor(s) - Hematologic/Lymphatic Hematologic/Lymphatic: no easy bruising - Constitutional Vitals: Temp Pulse Resp BP Pulse Ox 97.8 F 60 16 135/67 99 05/24/17 08:35 05/24/17 11:27 05/24/17 11:27 05/24/17 11:27 05/24/17 11:27 General appearance: Present: A&O X 3, pleasant, no acute distress - Head Head exam: Present: atraumatic, normocephalic - Eye Eye exam: Present: PERRL, conjuntiva pink, sclera anicteric Pupils: Present: PERRL - Neck Neck exam general surgery: Present: supple, trachea midline. Absent: lymphadenopathy - Respiratory Respiratory exam: Present: CTAB. Absent: accessory muscle use, rales, rhonchi, wheezes - Cardiovascular Cardiovascular exam: Present: RRR, +S1, +S2. Absent: diastolic murmur, gallop, rubs, systolic murmur - GI/Abdominal GI/Abdominal exam: Present: normal bowel sounds, soft, no peritoneal signs. Absent: distended, tenderness - Extremities Exam Extremities exam: Present: warm, radial pulses palpable and symmetrical. Absent : calf tenderness, cyanotic, pedal edema - Neurological Exam Neurological exam: Present: CN II-XII intact, oriented X3, no focal deficits. Absent: pronater drift, facial droop, speech deficit - Expanded Neurological Exam Cranial Nerves: EOM's intact PM: Normal, gag reflex PM: Normal, nystagmus PM: Normal, tongue deviation PM: Normal Neuro motor strength exam: LUE: 5, RUE: 5, LLE: 5, RLE: 5 - Skin Skin exam: Present: dry, intact Internal Med - H&P Results - Labs CBC & Chem 7: 05/24/17 09:07 05/24/17 09:07 Labs: All Lab Results (24 Hours) 05/24/17 05/24/17 05/24/17 Range/Units 08:55 09:07 09:07 WBC 6.6 (4.3-11.1) K/mcL RBC 4.56 (4.19-5.50) M/mcL Hgb 13.8 (12.9-16.9) g/dL Hct 39.6 (37.5-50.1) % MCV 86.8 (83.0-100.0) fL MCH 30.3 (28.0-33.3) pg MCHC 34.8 (31.6-35.5) g/dL RDW 12.5 (11.5-14.5) % Plt Count 185 (140-400) K/mcL MPV 9.4 (9.4-12.4) fL Immature Plt Fraction 2.8 (1.1-6.1) % PT 11.9 (9.4-12.1) Seconds INR 1.1 APTT 26.3 (26.0-36.0) Seconds POC Glucose 207 H (58-89) Total Bilirubin (0.2-1.2) mg/dL Direct Bilirubin (0.0-0.5) mg/dL Indirect Bilirubin (0.0-1.2) mg/dL AST (5-34) Units/L ALT (0-55) Units/L Alkaline Phosphatase (38-126) Units/L Ammonia (18-72) mcmol/L Creatine Kinase (30-200) Units/L Troponin I (0-0.03) ng/mL Serum Total Protein (6.0-8.3) g/dL Albumin (3.5-5.0) g/dL Globulin (2.4-3.5) g/dL Albumin/Globulin Ratio (1.1-2.2) Urine Color (Yellow) Urine Clarity (Clear) Urine pH (5.0-8.0) pH Units Ur Specific [place] (1.010-1.025) Urine Protein (Neg-Trace) mg/dL Urine Glucose (UA) (Normal) mg/dL Urine Ketones (Negative) mg/dL Urine Blood (Negative) Urine Nitrite (Negative) Urine Bilirubin (Negative) Urine Urobilinogen (Normal) mg/dL Ur Leukocyte Esterase (Negative) Urine Microscopic RBC (0-3) per hpf Urine Microscopic WBC (0-3) per hpf Ur Squamous Epith Cells (None-Few) per lpf Urine Bacteria (None-Few) per hpf Hyaline Casts (None-Few) per lpf Ur Culture Indicated? (NO) Urine Opiates Screen (Ogcivq=871) ng/mL Ur Barbiturates Screen (Snnkmc=117) ng/mL Ur Phencyclidine Scrn (Cutoff=25) ng/mL Ur Amphetamines Screen (Blmpwu=2313) ng/mL U Benzodiazepines Scrn (Vmcmtw=851) ng/mL Urine Cocaine Screen (Cutoff= 300) ng/mL U Marijuana (THC) Screen (Cutoff = 50) ng/mL Ethyl Alcohol (0-10) mg/dL Blood Type Antibody Screen 05/24/17 05/24/17 05/24/17 Range/Units 09:07 09:07 09:07 WBC (4.3-11.1) K/mcL RBC (4.19-5.50) M/mcL Hgb (12.9-16.9) g/dL Hct (37.5-50.1) % MCV (83.0-100.0) fL MCH (28.0-33.3) pg MCHC (31.6-35.5) g/dL RDW (11.5-14.5) % Plt Count (140-400) K/mcL MPV (9.4-12.4) fL Immature Plt Fraction (1.1-6.1) % PT (9.4-12.1) Seconds INR APTT (26.0-36.0) Seconds POC Glucose (58-89) Total Bilirubin 0.8 (0.2-1.2) mg/dL Direct Bilirubin 0.3 (0.0-0.5) mg/dL Indirect Bilirubin 0.5 (0.0-1.2) mg/dL AST 17 (5-34) Units/L ALT 19 (0-55) Units/L Alkaline Phosphatase 79 (38-126) Units/L Ammonia 20 (18-72) mcmol/L Creatine Kinase 65 (30-200) Units/L Troponin I (0-0.03) ng/mL Serum Total Protein 6.6 (6.0-8.3) g/dL Albumin 3.4 L (3.5-5.0) g/dL Globulin 3.2 (2.4-3.5) g/dL Albumin/Globulin Ratio 1.1 (1.1-2.2) Urine Color (Yellow) Urine Clarity (Clear) Urine pH (5.0-8.0) pH Units Ur Specific [place] (1.010-1.025) Urine Protein (Neg-Trace) mg/dL Urine Glucose (UA) (Normal) mg/dL Urine Ketones (Negative) mg/dL Urine Blood (Negative) Urine Nitrite (Negative) Urine Bilirubin (Negative) Urine Urobilinogen (Normal) mg/dL Ur Leukocyte Esterase (Negative) Urine Microscopic RBC (0-3) per hpf Urine Microscopic WBC (0-3) per hpf Ur Squamous Epith Cells (None-Few) per lpf Urine Bacteria (None-Few) per hpf Hyaline Casts (None-Few) per lpf Ur Culture Indicated? (NO) Urine Opiates Screen (Egqphf=361) ng/mL Ur Barbiturates Screen (Tvpfof=225) ng/mL Ur Phencyclidine Scrn (Cutoff=25) ng/mL Ur Amphetamines Screen (Yklmbx=3212) ng/mL U Benzodiazepines Scrn (Inkydg=088) ng/mL Urine Cocaine Screen (Cutoff= 300) ng/mL U Marijuana (THC) Screen (Cutoff = 50) ng/mL Ethyl Alcohol < 10 (0-10) mg/dL Blood Type O POSITIVE Antibody Screen NEGATIVE 05/24/17 05/24/17 05/24/17 Range/Units 09:07 09:59 09:59 WBC (4.3-11.1) K/mcL RBC (4.19-5.50) M/mcL Hgb (12.9-16.9) g/dL Hct (37.5-50.1) % MCV (83.0-100.0) fL MCH (28.0-33.3) pg MCHC (31.6-35.5) g/dL RDW (11.5-14.5) % Plt Count (140-400) K/mcL MPV (9.4-12.4) fL Immature Plt Fraction (1.1-6.1) % PT (9.4-12.1) Seconds INR APTT (26.0-36.0) Seconds POC Glucose (58-89) Total Bilirubin (0.2-1.2) mg/dL Direct Bilirubin (0.0-0.5) mg/dL Indirect Bilirubin (0.0-1.2) mg/dL AST (5-34) Units/L ALT (0-55) Units/L Alkaline Phosphatase (38-126) Units/L Ammonia (18-72) mcmol/L Creatine Kinase (30-200) Units/L Troponin I 0.01 (0-0.03) ng/mL Serum Total Protein (6.0-8.3) g/dL Albumin (3.5-5.0) g/dL Globulin (2.4-3.5) g/dL Albumin/Globulin Ratio (1.1-2.2) Urine Color Yellow (Yellow) Urine Clarity Clear (Clear) Urine pH 6.5 (5.0-8.0) pH Units Ur Specific [place] 1.017 (1.010-1.025) Urine Protein 100 H (Neg-Trace) mg/dL Urine Glucose (UA) 250 H (Normal) mg/dL Urine Ketones Negative (Negative) mg/dL Urine Blood Negative (Negative) Urine Nitrite Negative (Negative) Urine Bilirubin Negative (Negative) Urine Urobilinogen Normal (Normal) mg/dL Ur Leukocyte Esterase Negative (Negative) Urine Microscopic RBC 0-3 (0-3) per hpf Urine Microscopic WBC 0-3 (0-3) per hpf Ur Squamous Epith Cells Few (None-Few) per lpf Urine Bacteria None Seen (None-Few) per hpf Hyaline Casts None Seen (None-Few) per lpf Ur Culture Indicated? NO (NO) Urine Opiates Screen Negative (Uprxoa=264) ng/mL Ur Barbiturates Screen Negative (Scqcxr=887) ng/mL Ur Phencyclidine Scrn Negative (Cutoff=25) ng/mL Ur Amphetamines Screen Negative (Kxhwkq=8271) ng/mL U Benzodiazepines Scrn Negative (Qqqqkd=392) ng/mL Urine Cocaine Screen Negative (Cutoff= 300) ng/mL U Marijuana (THC) Screen Negative (Cutoff = 50) ng/mL Ethyl Alcohol (0-10) mg/dL Blood Type Antibody Screen - Diagnostic Studies Chest x-ray Additional comments: Chest X-Ray 05/24/17 08:53 IMPRESSION: Stable appearing chest which appears clear. D/ / Herrera Barnes MD / Herrera Barnes MD Interpreting Provider: Herrera Barnes MD CT scan - head Additional comments: Head CT 05/24/17 08:52 IMPRESSION: 1. No acute intracranial abnormality. D/ / Estuardo Rivera MD / Estuardo Rivera MD Interpreting Provider: Estuardo Rivera MD <JackyMukesh Bowling - Last Filed: 05/24/17 13:01> Date of Encounter: 05/24/17 Internal Medicine - H&P: HPI History of present illness: Mr. Sandoval is a 72 year old male All Systems PM: A 10-system review of systems was performed and is negative for pertinent findings except as documented above in the HPI. - Constitutional Vitals: Temp Pulse Resp BP Pulse Ox 97.8 F 60 16 135/67 99 05/24/17 08:35 05/24/17 11:27 05/24/17 11:27 05/24/17 11:27 05/24/17 11:27 Internal Med - H&P Results - Labs CBC & Chem 7: 05/24/17 09:07 05/24/17 09:07 - Attending Attestation I have personally performed a face to face evaluation on this patient. I have reviewed and agree with the care plan. History and Exam by me shows: 72-year-old gentleman who presents with slurred speech dysarthria since last evening. Had similar issues couple nights ago. On evaluation in the ER family noted that speech deficit has improved and is at baseline. History significant for coronary artery disease status post 16 stents, along with experiment therapy at [facility]. Risk factors include diabetes type 2, hypertension and CAD as mentioned. Focused neuro examination was unremarkable. No gross focal deficits Assessment and plan Admit for TIA workup as discussed by ER with MRI of brain, carotid Doppler, TTE bubble study with. He is ready on dual antiplatelet therapy with Plavix and aspirin, statin.
[2017-05-24 12:32] LABS: BUN/Creatinine Ratio 11 (6-26); Blood Urea Nitrogen 17 mg/dL (8-26); Carbon Dioxide 24 mEq/L (19-29); Chloride 105 mEq/L (98-109); Glucose 213 mg/dL (70-99); Osmolality,Calculated 294 (280-300); Potassium 3.9 mEq/L (3.5-4.5); Sodium 138 mEq/L (136-145); eGFR For African Americans 52 (> 60); eGFR For Non-African Americans 43 (> 60)
[2017-05-24 13:52] LABS: Hemoglobin A1C 6.9 %
[2017-05-24] MEDS: *HR* Heparin 5,000 UNIT/ML VIAL SQ SCH ×2 (15:22→20:56)
[2017-05-24] MEDS: Insulin LISPRO 300 UNITS/3 ML VIAL SQ SCH (17:26)
[2017-05-24] MEDS ORDERED: Insulin LISPRO 300 UNITS/3 ML VIAL SQ SCH (21:00)
[2017-05-25 04:12] LABS: Basophils % 0.3 %; Eosinophils # 0.3 K/mcL (0.0-0.6); Eosinophils % 4.7 %; Hematocrit 34.9 % (37.5-50.1); Hemoglobin 12.4 g/dL (12.9-16.9); Immature Granulocytes % 0.5 % (0-4); Lymphocytes # 1.8 K/mcL (0.6-4.6); Lymphocytes % 31.2 %; Mean Corpuscular HGB Conc 35.5 g/dL (31.6-35.5); Mean Corpuscular Hemoglobin 31.1 pg (28.0-33.3); Mean Corpuscular Volume 87.5 fL (83.0-100.0); Mean Platelet Volume 9.7 fL (9.4-12.4); Monocytes # 0.6 K/mcL (0.0-1.3); Monocytes % 10.5 %; Platelet Count 144 K/mcL (140-400); Red Blood Count 3.99 M/mcL (4.19-5.50); Red Cell Distribution Width 12.6 % (11.5-14.5); Segmented Neutrophils % 52.8 %
[2017-05-25 04:17] LABS: Calcium 8.7 mg/dL (8.6-10.8); Chol/HDL Ratio 2.7 (0-4.9); Potassium 3.9 mEq/L (3.5-4.5)
[2017-05-25] MEDS: *HR* Heparin 5,000 UNIT/ML VIAL SQ SCH (04:19)
[2017-05-25 07:44] VITALS: BP 147/65
[2017-05-25] MEDS: Insulin LISPRO 300 UNITS/3 ML VIAL SQ SCH (08:19)
[2017-05-25] MEDS ORDERED: Ondansetron 4 MG/2 ML VIAL IVP PRN (08:47)
[2017-05-25] MEDS ORDERED: Aspirin Enteric Coated 81 MG Tablet PO SCH (09:00)
[2017-05-25] MEDS ORDERED: amLODIPine 5 MG TABLET PO SCH (09:00)
--- NOTE | 2017-05-25 11:20 | Discharge Summary ---
Date of Encounter: 05/25/17 Time of Encounter: 08:45 - Discharge Diagnosis (1) TIA (transient ischemic attack) Priority: Primary Status: Acute Comments: Symptoms have resolved and pt states that he is back to his baseline. He denies chest pain, SOB, headache, vision changes, change in speech, numbness or tingling of extremities, or weakness. Pt does report nausea that is resolved with Zofran. All imaging, as well as echo have been negative. Head CT 05/24/17 08:52 IMPRESSION: 1. No acute intracranial abnormality. D/ / Estuardo Rivera MD / Estuardo Rivera MD Interpreting Provider: Estuardo Rivera MD Chest X-Ray 05/24/17 08:53 IMPRESSION: Stable appearing chest which appears clear. D/ / Herrera Barnes MD / Herrera Barnes MD Interpreting Provider: Herrera Barnes MD Brain MRI 05/24/17 11:59 IMPRESSION: Mild cerebral atrophy. Mild chronic small vessel ischemic changes. No acute brain parenchymal abnormality. D/ / 05/24/2017 15:06:11 Jackeline Larkin MD / [facility] Interpreting Provider: Jackeline Larkin MD Echocardiogram 05/24/17 11:59 Impressions: LVEF 65%. Normal LV chamber size and function. Mild symmeteric hypertrophy of the basal septum. Mild left ventricular diastolic dysfunction. Atypical septal motion consistent with post-operative status. Normal right ventricular structure and function. Mild mitral regurgitation. No evidence of pulmonary hypertension. Left Ventricular Wall Motion: Rest Echo Findings All wall segments showed normal motion. Findings: Study Quality * Technically adequate exam. ECG Findings * Normal sinus rhythm. Left Ventricle * LVEF 65%. * Normal LV chamber size and function. * Mild symmeteric hypertrophy of the basal septum. * Mild left ventricular diastolic dysfunction. * Atypical septal motion consistent with post-operative status. Right Ventricle * Normal right ventricular structure and function. Left Atrium * Mildly dilated left atrium. Right Atrium * Normal right atrial size. Interatrial Septum * Interatrial septum not well evaluated. Aortic Valve * Trileaflet aortic valve with normal function. * No aortic regurgitation. * No aortic stenosis. Mitral Valve * Normal mitral valve structure. * Mild mitral regurgitation. * No mitral stenosis. Tricuspid Valve * Normal tricuspid valve structure and function. * Trace tricuspid regurgitation. * No evidence of pulmonary hypertension. Pulmonic Valve * Normal pulmonic valve structure and function. * Trace pulmonic regurgitation. Aorta * Normally sized aortic root. Pericardium * The pericardium appears normal. IVC * Normal IVC dimensions and inspiratory collapse. Pulmonary Artery * Normal visualized portions of the main pulmonary artery. ADDENDUM: 05/24/17 8050 Impressions: LVEF 65%. Normal LV chamber size and function. Mild symmeteric hypertrophy of the basal septum. Mild left ventricular diastolic dysfunction. Atypical septal motion consistent with post-operative status. Normal right ventricular structure and function. Mild mitral regurgitation. No evidence of pulmonary hypertension. Agitated saline administered. Image quality was suboptimal to evaluate for PFO. Left Ventricular Wall Motion: Rest Echo Findings All wall segments showed normal motion. Findings: Study Quality * Technically adequate exam. ECG Findings * Normal sinus rhythm. Left Ventricle * LVEF 65%. * Normal LV chamber size and function. * Mild symmeteric hypertrophy of the basal septum. * Mild left ventricular diastolic dysfunction. * Atypical septal motion consistent with post-operative status. Right Ventricle * Normal right ventricular structure and function. Left Atrium * Mildly dilated left atrium. Right Atrium * Normal right atrial size. Interatrial Septum * Agitated saline administered. Image quality was suboptimal to evaluate for PFO. Aortic Valve * Trileaflet aortic valve with normal function. * No aortic regurgitation. * No aortic stenosis. Mitral Valve * Normal mitral valve structure. * Mild mitral regurgitation. * No mitral stenosis. Tricuspid Valve * Normal tricuspid valve structure and function. * Trace tricuspid regurgitation. * No evidence of pulmonary hypertension. Pulmonic Valve * Normal pulmonic valve structure and function. * Trace pulmonic regurgitation. Aorta * Normally sized aortic root. Pericardium * The pericardium appears normal. IVC * Normal IVC dimensions and inspiratory collapse. Pulmonary Artery * Normal visualized portions of the main pulmonary artery. Qualifiers: Transient cerebral ischemia type: unspecified Qualified Code(s): G45.9 - Transient cerebral ischemic attack, unspecified (2) CKD (chronic kidney disease) stage 3, GFR 30-59 ml/min Priority: Secondary Status: Chronic Comments: Per history. Sr Cr 1.48, GFR 46. Continue to avoid nephrotoxins and follow up with Dr. Milton Murray, PCP. Pt states that he does not see nephrology. (3) CAD (coronary artery disease) Priority: Secondary Status: Chronic Comments: Denies chest pain. Continue ASA, Statin, BB, and Plavix Qualifiers: Coronary Disease-Associated Artery/Lesion type: [place] artery [place] vs. transplanted heart: [place]key heart Associated angina: with stable angina Qualified Code(s): I25.118 - Atherosclerotic heart disease of [place] coronary artery with other forms of angina pectoris (4) HTN (hypertension) Priority: Secondary Status: Chronic Comments: Chronic. Well controlled. Continue home medications. Qualifiers: Hypertension type: essential hypertension Qualified Code(s): I10 - Essential (primary) hypertension (5) Diabetes Priority: Secondary Status: Chronic Comments: A1c 6.9. Continue home medications and regimen. Qualifiers: Diabetes mellitus type: type 2 Diabetes mellitus complication status: without complication Diabetes mellitus rn long term care insulin use: without rn long term care use Qualified Code(s): E11.9 - Type 2 diabetes mellitus without complications (6) HLD (hyperlipidemia) Priority: Secondary Status: Chronic Comments: Pt takes Lipitor, continue at home. Qualifiers: Hyperlipidemia type: pure hypercholesterolemia Qualified Code(s): E78.00 - Pure hypercholesterolemia, unspecified; E78.0 - Pure hypercholesterolemia (7) DVT prophylaxis Priority: Secondary Status: Acute Comments: NICO hose and Heparin SQ - Discharge Medications Prescriptions: Ondansetron ODT [Zofran ODT] 4 mg SL Q6HR #8 tab.rapdis Home Medications: Amlodipine Besylate 10 mg PO DAILY 12/21/16 [History] Aspirin [Lo-Dose Aspirin EC] 81 mg PO DAILY 12/21/16 [History] Atorvastatin [Lipitor] 40 mg PO HS 12/21/16 [History] Clopidogrel [Plavix] 75 mg PO DAILY 12/21/16 [History] Metoprolol [Lopressor] 25 mg PO DAILY 12/21/16 [History] Tamsulosin [Flomax] 0.4 mg PO DAILY 12/21/16 [History] glipiZIDE [Glucotrol] 5 mg PO BIDWM 12/21/16 [History] Ondansetron ODT [Zofran ODT] 4 mg SL Q6HR #8 tab.rapdis 05/25/17 [Rx] Allergies/Adverse Reactions: 3 Allergy/AdvReac Type Severity Reaction Status Date / Time No Known Allergies Allergy Verified 12/21/16 09:43 Procedures/tests Complete & Pending: Procedures Performed prior 72 hours Category Date Time Status MR head/brain wo con [MR] Routine MRI 05/24/17 11:59 Draft EV carotid duplex imaging BI Routine Y 05/24/17 Completed EV echocardiogram Routine Y 05/24/17 11:59 Completed Date of admission: 05/24/17 11:28 Primary care physician: Milton Murray, Discharging clinician: Ameena Luis Anticipated date of discharge: 05/25/17 - Patient Status Disposition: Home, Self-Care Functional capacity at discharge: independent ambulation Overall status at discharge: patient is back to baseline - Discharge Instructions Follow Up With: Milton Murray, [Primary Care Provider] - Forms: ED Satisfaction Letter Additional Instructions: Follow up with your PCP in the next 7-10 days for a follow up visit. Take your medications as directed. I have called in prescription for Zofran for nausea to your pharmacy. Continue the good work with your diet, exercise, and smoking cessation! Return to the ER as needed for any other problems or concerns, or if your symptoms return. - Diet and Activity Activity: increase activity as tolerated Diet: advance to your usual diet, diabetic diet Hospital course: Mr. Sandoval is a 72 year old male with PMH of CKD stage III, CAD s/p CABG and stents HTN, DMII who presents to the ED with c/o confusion and slurred speech, difficulty finding word when speaking to his grandson. Reports onset of several days, longer episode night prior to admission, lasted for 1 hour prior to admission. He denies chest pain, headache, vomiting, vision changes, speech difficulty or dysphagia, no neck stiffness, no abdominal pain, vomiting, or urinary s/s. Pt did report nausea this a.m. that was relieved with Zofran. Head CT negative for acute intracarnial abnormality, chest xray negative. Brain MRI with mild cerebral atrophy, mild chronic small vessel ischemic changes, and no abnormality. Labs WNL other than Sr Cr and BUN. Pt reports Stage III CKD and does not see nephrology. Vital signs are WNL and stable now. Pt states that he has lost 30 lbs and increased his exercise, as well as quit smoking this year after diagnosis of DM. Pt will continue ASA, statin, and Plavix at home. He has returned to baseline and states that he feels well. He has no focal neuological deficits and speech has returned to normal, strengths are equal angi , upper and lower extremities. Pt will follow up with PCP for reevaluation and he has been instructed to return to the ED for returning or worsening symptoms. Pt is stable ad appropriate for discharge. - Time Spent with Patient Total time spent providing and/or coordinating discharge services: Less than 30 minutes - Constitutional Vitals: Temp Pulse Resp BP Pulse Ox 97.9 F 63 15 147/65 98 05/25/17 07:43 05/25/17 07:43 05/25/17 07:43 05/25/17 07:43 05/25/17 07:43 General appearance: Present: A&O X 3, pleasant, no acute distress, answers questions appropriately - Head Head exam: Present: atraumatic, normal inspection, normocephalic - Eye Eye exam: Present: EOMI, normal appearance, PERRL, conjuntiva pink, sclera anicteric. Absent: nystagmus Pupils: Present: normal accommodation - Neck Neck exam general surgery: Present: supple, trachea midline. Absent: lymphadenopathy, normal inspection, tenderness - Respiratory Respiratory exam: Present: CTAB. Absent: accessory muscle use, decreased breath sounds, rales, respiratory distress, rhonchi, wheezes - Cardiovascular Cardiovascular exam: Present: RRR, +S1, +S2. Absent: diastolic murmur, gallop, rubs, systolic murmur - GI/Abdominal GI/Abdominal exam: Present: normal bowel sounds, soft, no peritoneal signs. Absent: distended, hepatomegaly, tenderness - Extremities Exam Extremities exam: Present: normal capillary refill, normal inspection, warm, radial pulses palpable and symmetrical. Absent: calf tenderness, cyanotic, pedal edema - Neurological Exam Neurological exam: Present: alert, oriented X3, no focal deficits, strengths equal and symetr throughout. Absent: motor sensory deficit, facial droop, speech deficit - Skin Skin exam: Present: dry, intact, normal color, warm. Absent: rash
--- NOTE | 2017-05-25 16:36 | Electrocardiograph Report ---
[address] [address] Test Date: 2017-05-24 Pat Name: Jesus Sandoval Department: 103 Room: 3B16 Gender: M [employer]: : [id number] Requested By: Kit Hobbs Order Number: [id number] Reading MD: Tashia Bach Measurements Intervals [place] Rate: 58 P: 35 RI: 158 QRS: 26 QRSD: 90 T: 83 QT: 390 QTc: 386 Interpretive Statements SINUS BRADYCARDIA NONSPECIFIC ST & T-WAVE ABNORMALITY Electronically Signed On 05-25-2017 16:34:06 EDT by Tashia Bach
--- NOTE | 2017-05-25 18:27 | Carotid Imaging Report ---
Carotid Duplex Patient Name:Jesus Sandoval Order Number:[id number] Procedure Date:05/24/2017 Date:1945ge:72 yrs Gender:Male Lt BP:145 / 60 mmHg Rt.BP:145 / 60 mmHgHeart Rate: Location:[facility] Room #: 3B16 Brake Operator:Barbra Lake, TIARA Referring MD:Radha Osman [employer]OTH[employer] HELPER crank hand:Milton Murray DO Reading MD:Jesus Alvarez MD Primary Indications:TIA Risk Factors Yes/No Hypertension Hypercholesterolemia Diabetes Smoker Previous Impressions: The right internal carotid artery has a 40-59% stenosis. The left internal carotid artery has a 40-59% stenosis. Recommendations: Risk factor reduction. Follow-up carotid duplex in 1 year. Findings Carotid Duplex: Right: There is nonstenotic plaque in the right proximal common carotid artery. There is irregular heterogeneous plaque. There is nonstenotic plaque in the right mid common carotid artery. There is smooth heterogeneous plaque. There is nonstenotic plaque in the right distal common carotid artery. There is smooth heterogeneous plaque. There is 40-59% stenosis in the right bifurcation. There is highly irregular, heterogeneous calcified plaque. There is 40-59% stenosis in the right proximal internal carotid artery. There is smooth heterogeneous plaque. There is 40-59% stenosis in the right mid internal carotid artery. There is smooth heterogeneous plaque. There is 40-59% stenosis in the right distal internal carotid artery. There is smooth heterogeneous plaque. There is nonstenotic plaque in the right eca. There is smooth homogeneous plaque. Left: There is nonstenotic plaque in the left distal common carotid artery. There is smooth heterogeneous plaque. There is 40-59% stenosis in the left bifurcation. There is calcified plaque. There is 40-59% stenosis in the left proximal internal carotid artery. There is smooth heterogeneous plaque. Prior Study: No prior study available for comparison. Carotid Results Right PSV EDV Assessment Proximal CCA 96 13 Non Stenotic Plaque Mid CCA 89 15 Non Stenotic Plaque Distal CCA 106 17 Non Stenotic Plaque Bifurcation 195 24 40-59% stenosis Proximal ICA 231 20 40-59% stenosis Mid ICA 127 21 40-59% stenosis Distal ICA 128 27 40-59% stenosis ECA 279 19 Non Stenotic Plaque Vertebral Artery 38 6 Antegrade Flow Left PSV EDV Assessment Proximal CCA 148 17 Normal Mid CCA 130 22 Normal Distal CCA 123 23 Non Stenotic Plaque Bifurcation 156 24 40-59% stenosis Proximal ICA 161 31 40-59% stenosis Mid ICA 107 24 Normal Distal ICA 93 25 Normal ECA 169 15 Normal Vertebral Artery 56 9 Antegrade Flow Ratio's Right ICA/CCA Ratio: 2.60 ICA/CCA Values: 231/89 Left ICA/CCA Ratio: 1.24 ICA/CCA Values: 161/130 Updated by Jesus Alvarez MD on 05/25/2017 6:19:57 PM electronically signed on 05/25/2017 6:20:08 PM with status of Final
== END 2017-05-25 12:43 | disposition home or self-care (01) ==
LOC: EMEROO 08:33 → 3BNU 08:33
PROVIDERS: ADMIT Internal Medicine Hematology & Oncology; ATTEND Registered Nurse

== ENCOUNTER 2021-12-20 03:06 | Inpatient (IN) ==
[2021-12-20 03:34] LABS: Basophils % 0.1 %; Eosinophils % 0.2 %; Hematocrit 34.7 % (37.5-50.1); Immature Granulocytes % 0.3 % (0-4); Lymphocytes # 0.7 K/mcL (0.6-4.6); Lymphocytes % 4.6 %; Mean Corpuscular HGB Conc 34.6 g/dL (31.6-35.5); Mean Corpuscular Hemoglobin 32.3 pg (28.0-33.3); Mean Corpuscular Volume 93.5 fL (83.0-100.0); Mean Platelet Volume 10.4 fL (9.4-12.4); Monocytes # 0.8 K/mcL (0.0-1.3); Monocytes % 5.8 %; Neutrophils # 12.8 K/mcL (1.6-8.9); Platelet Count 127 K/mcL (140-400); Red Blood Count 3.71 M/mcL (4.19-5.50); Red Cell Distribution Width 12.4 % (11.5-14.5); White Blood Count 14.4 K/mcL (4.3-11.1)
[2021-12-20 03:52] LABS: Albumin 3.3 g/dL (3.5-5.7); Albumin/Globulin Ratio 1.4 (1.1-2.2); Bilirubin,Direct 0.3 mg/dL (0.0-0.2); Bilirubin,Indirect 0.9 mg/dL (0.0-1.0); Bilirubin,Total 1.2 mg/dL (0.3-1.0); Calcium 8.6 mg/dL (8.6-10.3); Globulin 2.3 g/dL (2.4-3.5); Potassium 3.9 mEq/L (3.5-5.1); Total Protein 5.6 g/dL (6.4-8.9)
[2021-12-20 03:57] LABS: Troponin I 0.55 ng/mL (< 0.04)
[2021-12-20] MEDS ORDERED: Aspirin 325 MG TABLET PO ONE (04:01)
[2021-12-20] MEDS ORDERED: *HR* Heparin 5,000 UNIT/ML VIAL IVP PRN ×2 (04:35)
[2021-12-20] MEDS ORDERED: *HR* Heparin 5,000 UNIT/ML VIAL IVP ONE (04:35)
[2021-12-20] MEDS: Heparin 25,000UNIT/250ML 1/2NS 25,000 UNIT/250 ML IV.SOLN IVC SCH (04:45)
[2021-12-20 05:05] LABS: Heparin anti-factor XA UFH < 0.04 IU/mL (0.30-0.70)
[2021-12-20 05:06] LABS: INR 1.3; Prothrombin Time 14.2 Seconds (9.4-12.1)
[2021-12-20] MEDS ORDERED: *HR* Dextrose 50 % in Water (Syg) 50 ML SYRINGE IVP PRN (05:14)
[2021-12-20] MEDS ORDERED: Dextrose 4 GM Chewable Tablets PO PRN ×2 (05:14)
[2021-12-20] MEDS ORDERED: D5% in Water 1,000 ML IVC PRN (05:14)
[2021-12-20] MEDS ORDERED: Ondansetron 4 MG/2 ML VIAL IVP PRN (05:19)
[2021-12-20] MEDS ORDERED: Acetaminophen 325 MG TABLET PO PRN (05:19)
[2021-12-20] MEDS ORDERED: Nitroglycerin 0.4 MG TAB.SUBL SL PRN (05:19)
[2021-12-20] MEDS ORDERED: Naloxone 0.4 MG/ML INJ IVP PRN (05:19)
[2021-12-20] MEDS ORDERED: Morphine Sulfate 2 MG/ML SYRINGE IVP PRN (05:20)
[2021-12-20] MEDS ORDERED: Perflutren Lipid Microsphere 1.3 ML in 0.9 % Sodium Chloride 8.7 ML IVP PRN (05:33)
[2021-12-20 05:34] LABS: Influenza A PCR Negative (Negative); Influenza B PCR Negative (Negative); Resp. Syncytial Virus PCR Negative (Negative)
[2021-12-20 05:40] LABS: SARS-CoV-2 by PCR (In House) Negative (Negative)
[2021-12-20] MEDS: Insulin LISPRO 300 UNITS/3 ML VIAL SUBQ SCH ×3 (05:52→17:42)
[2021-12-20] MEDS: Aspirin Enteric Coated 81 MG Tablet PO SCH (09:15)
[2021-12-20 09:22] LABS: Chol/HDL Ratio 1.8 (0-4.9)
[2021-12-20 09:24] LABS: % Iron Saturation 5 % (20-55); Iron 12 mcg/dL (65-175); Transferrin 177 mg/dL (203-362)
[2021-12-20 09:42] LABS: Ferritin 103 ng/mL (20-250)
[2021-12-20 10:15] LABS: Folate 12.8 ng/mL (3.0-16.0)
[2021-12-20] MEDS ORDERED: Iron Sucrose Complex 400 MG in 0.9 % Sodium Chloride 250 ML IVPB ONE (10:22)
[2021-12-20 10:57] LABS: Estimated Average Glucose 163 mg/dl; Hemoglobin A1C 7.3 %
[2021-12-20 18:06] LABS: Bilirubin,Urine Negative (Negative); Blood,Urine Negative (Negative); Clarity,Urine Clear (Clear); Color,Urine Light-Yellow (Yellow); Glucose,Urine (UA) 500 mg/dL (Normal); Ketones,Urine Negative (Negative); Leukocyte Esterase,Urine Negative (Negative); Nitrite,Urine Negative (Negative); PH,Urine 6.5 pH Units (5.0-8.0); Protein,Urine 70 mg/dL (Neg-Trace); Specific Gravity,Urine 1.016 (1.010-1.025); Urobilinogen,Urine Normal (Normal); WBC,Urine 0-3 per hpf (0-3)
[2021-12-21] MEDS: Insulin LISPRO 300 UNITS/3 ML VIAL SUBQ SCH ×3 (01:08→11:45)
[2021-12-21 06:55] LABS: Hematocrit 37.5 % (37.5-50.1); Mean Corpuscular HGB Conc 34.7 g/dL (31.6-35.5); Mean Corpuscular Hemoglobin 32.3 pg (28.0-33.3); Mean Corpuscular Volume 93.1 fL (83.0-100.0); Mean Platelet Volume 10.9 fL (9.4-12.4); Platelet Count 132 K/mcL (140-400); Red Blood Count 4.03 M/mcL (4.19-5.50); Red Cell Distribution Width 12.4 % (11.5-14.5); White Blood Count 10.5 K/mcL (4.3-11.1)
[2021-12-21 07:11] LABS: BUN/Creatinine Ratio 17 (6-26); Blood Urea Nitrogen 23 mg/dL (8-23); Carbon Dioxide 25 mEq/L (23-29); Chloride 106 mEq/L (98-107); Glucose 188 mg/dL (70-105); Magnesium 1.7 mg/dL (1.6-2.6); Osmolality,Calculated 297 (280-300); Potassium 4.1 mEq/L (3.5-5.1); Sodium 139 mEq/L (136-145); eGFR For African Americans > 60 (> 60); eGFR For Non-African Americans 52 (> 60)
[2021-12-21] MEDS: Aspirin Enteric Coated 81 MG Tablet PO SCH (08:15)
[2021-12-21] MEDS ORDERED: Cholecalciferol (D-3) 1,000 UNIT (25MCG) TABLET PO SCH (09:00)
[2021-12-21] MEDS ORDERED: Isosorbide MONOnitrate (24 HR) 60 MG TAB.ER.24H PO SCH (09:00)
[2021-12-21] MEDS: Heparin 25,000UNIT/250ML 1/2NS 25,000 UNIT/250 ML IV.SOLN IVC SCH (11:45)
[2021-12-21 14:00] VITALS: BP 142/64; PULSE 74; TEMP 98.1; O2SAT 97
== END 2021-12-21 17:00 | disposition home or self-care (01) | DRG 281 ==
LOC: 3ANU 03:06 → EMEROOARM 03:06 → SUATTDRO 04:39 → 3ANU 05:09
PROVIDERS: ADMIT Student in an Organized Health Care Education/Training Program; ATTEND Family Medicine